=== PATIENT | female | born 1980 | race American Indian/Alaskan Native ===

== ENCOUNTER 2018-07-05 10:21 | Emergency (ER) | payer MEDICAID ==
[2018-07-05 10:30] VITALS: BMI 19.3
[2018-07-05 10:33] VITALS: BP 144/99; PULSE 99; RESP 18; TEMP 98.6; O2SAT 99
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
== END 2018-07-05 11:00 | disposition home or self-care (01) ==
LOC: C.ER 10:21
DX: S00.83XA Contusion of other part of head, initial encounter (principal); W19.XXXA Unspecified fall, initial encounter